=== PATIENT | male | born 1975 | race Native Hawaiian/Other Pacific Islander ===

== ENCOUNTER → 2018-03-03 | Outpatient (CLI) | payer OTHER ==
[2018-03-03 10:58] VITALS: BP 111/70
[2018-03-03 11:06] VITALS: BP 102/55
== END | disposition home or self-care (01) ==
LOC: CARDMN 09:58 → EDSEX 09:58
PROVIDERS: ATTEND Internal Medicine Cardiovascular Disease
DX: R07.9 Chest pain, unspecified (principal); I73.9 Peripheral vascular disease, unspecified
CPT/HCPCS: 93017; 93925